=== PATIENT | female | born 1965 ===

== ENCOUNTER → 2016-05-21 | Outpatient (REF) | LOC: ZLAB.WCH 15:59 | DX: Z01.89 Encounter for other specified special examinations (principal) ==

== ENCOUNTER 2023-07-14 11:01 | Day surgery (SDC) | payer BC ==
[~2023-07-14] VITALS: Ht 170.2 cm; Wt 94.5 kg
[~2023-07-14 11:01] MED LIST: Glycopyrrolate 0.2 MG/ML 1 ML VIAL ONE; LR 1,000 ML IV SCH; Lidocaine PF 2% (20 MG/ML) 5 ML VIAL ONE; NS 10 ML IV ONE; Ondansetron 4 MG/2 ML VIAL ONE; Rocuronium 50 MG/5 ML Multi-Dose VIAL ONE; dexAMETHasone 10 MG/ML VIAL ONE; fentaNYL 50 MCG/ML 2 ML VIAL ONE; fentaNYL 50 MCG/ML 5 ML VIAL ONE
[2023-07-14] MEDS ORDERED: JARDIANCE25 (13:01)
[2023-07-14] MEDS ORDERED: TRULICITY3 MG/0.5 M SQ (13:01)
[2023-07-14] MEDS ORDERED: LEVOXYL0.088 MG PO (13:02)
[2023-07-14] MEDS ORDERED: ATORVALIQ20 MG/5 ML PO (13:02)
[2023-07-14] MEDS ORDERED: CLARITIN 1010 MG/TAB (13:03)
[2023-07-14 13:04] VITALS: BP 124/76; PULSE 86; TEMP 97.3
[2023-07-14] MEDS ORDERED: NORCO 325 MG-51 TAB PO (13:16)
[2023-07-14] MEDS ORDERED: MOTRIN 600600 MG/TAB PO (13:16)
[2023-07-14] MEDS ORDERED: Topical Skin Adhesive 1 EACH (1 ML) TOP ONE (15:11)
[2023-07-14] MEDS ORDERED: Lidocaine PF 2% (20 MG/ML) 10 ML POLY AMP IJ ONE (15:11)
[2023-07-14 15:39] VITALS: BP 112/62; PULSE 89; TEMP 97.5
[2023-07-14 15:54] VITALS: BP 110/56; PULSE 80
[2023-07-14] MEDS ORDERED: droPERidol 2.5 MG/ML 2 ML VIAL IV PRN (16:00)
[2023-07-14] MEDS ORDERED: fentaNYL 50 MCG/ML 1 ML SYRINGE/VIAL [PACU/SDC ONLY] IV PRN (16:00)
[2023-07-14] MEDS ORDERED: hydrALAZINE 20 MG/ML 1 ML VIAL IV PRN (16:00)
[2023-07-14] MEDS ORDERED: HYDROmorphone 1 MG/1 ML SYRINGE [PACU/SDC ONLY] IV PRN (16:00)
[2023-07-14] MEDS ORDERED: Ondansetron 4 MG/2 ML VIAL IV PRN (16:00)
[2023-07-14 16:09] VITALS: BP 116/69; PULSE 80
--- NOTE | 2023-07-14 16:20 | NUR ---
1539 RETURNS TO ROOM 2 FROM OR PER CART WITH HOB ELEVATED 30 DEGREES. RESPONDS SPONTANEOUSLY, FAMILIARIZED WITH SURROUNDINGS. RESP UNLABORED. VITAL SIGNS OBTAINED. INCISIONS RIGHT NECK AND INCISION RIGHT UPPER CHEST INTACT WITHOUT REDNESS OR DRAINAGE. DENIES PAIN. CALL LIGHT AT SIDE. IN ROOM 1550 AWAKE, ALERT. HOB ELEVATED 60 DEGREES 1600 AWAKE, ALERT. CONVERSES WITH . TOLERATES PO SODA WITHOUT NAUSEA. DISCHARGE INSTRUCTIONS REVIEWED. PATIENT VERBALIZES UNDERSTANDING. COPY PROVIDED IN DISCHARGE FOLDER 161 SITS ON EDGE OF CART. DRESSES SELF
== END 2023-07-14 16:20 | disposition home or self-care (01) ==
LOC: SDCO 11:01
DX: C20 Malignant neoplasm of rectum (principal); E11.9 Type 2 diabetes mellitus without complications; Z79.85 Long-term (current) use of injectable non-insulin antidiabetic drugs; Z79.84 Long term (current) use of oral hypoglycemic drugs
CPT/HCPCS: C1788; J0665; J0690; J1100; J1644; J2405; J2704; J3010; J7120

== ENCOUNTER → 2023-11-01 | Outpatient (CLI) | payer BC ==
[~2023-11-01] MED LIST changes: +ATORVALIQ20 MG/5 ML PO; +CLARITIN 1010 MG/TAB; -Glycopyrrolate 0.2 MG/ML 1 ML VIAL ONE; +JARDIANCE25; +LEVOXYL0.088 MG PO; -LR 1,000 ML IV SCH; -Lidocaine PF 2% (20 MG/ML) 5 ML VIAL ONE; +MOTRIN 600600 MG/TAB PO; +NORCO 325 MG-51 TAB PO; -NS 10 ML IV ONE; -Ondansetron 4 MG/2 ML VIAL ONE; -Rocuronium 50 MG/5 ML Multi-Dose VIAL ONE; +TRULICITY3 MG/0.5 M SQ; -dexAMETHasone 10 MG/ML VIAL ONE; -fentaNYL 50 MCG/ML 2 ML VIAL ONE; -fentaNYL 50 MCG/ML 5 ML VIAL ONE
== END ==
LOC: MC.RAD 10:12
DX: Z12.31 Encounter for screening mammogram for malignant neoplasm of breast (principal)